=== PATIENT | female | born 1945 | race Caucasian/White ===

== ENCOUNTER 2020-10-13 06:31 | Inpatient (IN) ==
[~2020-10-13 06:31] MED LIST: Ringers Solution, Lactated 1,000 ML IVC SCH
[2020-10-13] MEDS ORDERED: CeFAZolin Syr 2,000MG/20 ML 2,000 MG/20 ML SYRINGE IVPB ONE (06:54)
[2020-10-13] MEDS ORDERED: *HR* FentaNYL (PF) 100 MCG/2 ML VIAL ONE (07:00)
[2020-10-13] MEDS ORDERED: *HR* OxyCODONE/APAP 5/325 TABLET PO PRN (07:00)
[2020-10-13] MEDS ORDERED: Ondansetron 4 MG/2 ML VIAL ONE (07:00)
[2020-10-13] MEDS ORDERED: Dexamethasone 4 MG/ML VIAL ONE (07:00)
[2020-10-13] MEDS ORDERED: *HR* Remifentanil 1 MG VIAL IVP ONE ×2 (07:00→10:03)
[2020-10-13] MEDS ORDERED: *HR* Phenylephrine 10 MG/ML VIAL ONE (07:00)
[2020-10-13] MEDS ORDERED: Ondansetron 4 MG/2 ML VIAL IVP PRN ×2 (07:00→13:50)
[2020-10-13] MEDS ORDERED: *HR* Rocuronium Bromide 50 MG/5 ML VIAL ONE ×2 (07:00→09:01)
[2020-10-13] MEDS ORDERED: *HR* Succinylcholine 200 MG/10 ML VIAL IVP ONE (07:00)
[2020-10-13] MEDS ORDERED: Lidocaine -MPF 2% 2 ML VIAL ONE (07:00)
[2020-10-13] MEDS ORDERED: EPHEDrine 50 MG/ML VIAL ONE (07:01)
[2020-10-13] MEDS ORDERED: *HR* Propofol 200 MG/20 ML VIAL IVP ONE (07:01)
[2020-10-13] MEDS ORDERED: *HR* HYDROmorphone PF 0.5 MG/0.5 ML SYRINGE IVP PRN (07:23)
[2020-10-13] MEDS ORDERED: Ringers Solution, Lactated 1,000 ML IVC SCH (07:30)
[2020-10-13] MEDS ORDERED: Bacitracin 50,000 UNIT, Polymyxin B Sulfate 500,000 UNIT, Sodium Chloride IRRigation 1,... IR ONE (07:45)
[2020-10-13] MEDS ORDERED: Acetaminophen IV 1,000 MG/100 ML BAG IVPB ONE (08:36)
[2020-10-13] MEDS ORDERED: Sugammadex Sodium 200 MG/2 ML VIAL IV ONE (09:10)
[2020-10-13] MEDS ORDERED: *HR* HYDROMORPHONE 2 MG/ML VIAL ONE (11:05)
[2020-10-13] MEDS: *HR* HYDROmorphone PF 0.5 MG/0.5 ML SYRINGE IVP PRN ×4 (11:49→12:11)
[2020-10-13] MEDS ORDERED: Naloxone 0.4 MG/ML INJ IVP PRN (13:50)
[2020-10-13] MEDS ORDERED: Acetaminophen 325 MG TABLET PO PRN (13:50)
[2020-10-13] MEDS ORDERED: *HR* OxyCODONE Immed Rel 5 MG TABLET PO PRN (13:50)
[2020-10-13] MEDS: Ringers Solution, Lactated 1,000 ML IVC SCH (15:32)
[2020-10-13] MEDS: CeFAZolin 2 GM/120 ML BAG IVPB SCH (15:32)
[2020-10-13] MEDS ORDERED: *HR* Promethazine 25 MG/ML VIAL IM ONE (18:06)
[2020-10-13] MEDS ORDERED: Scopolamine Patch 1.5 MG PATCH.TD72 TD ONE (18:06)
[2020-10-13] MEDS: Acetaminophen IV 1,000 MG/100 ML BAG IVPB SCH (19:30)
[2020-10-14] MEDS: CeFAZolin 2 GM/120 ML BAG IVPB SCH (00:23)
[2020-10-14] MEDS: Acetaminophen IV 1,000 MG/100 ML BAG IVPB SCH ×2 (02:29→09:32)
[2020-10-14] MEDS ORDERED: diazePAM 2 MG TABLET PO PRN (09:55)
[2020-10-14] MEDS ORDERED: *HR* OxyCODONE Immed Rel 5 MG TABLET PO PRN (09:59)
[2020-10-14] MEDS: tiZANidine 4 MG TABLET PO PRN ×2 (12:34→20:28)
[2020-10-14] MEDS: Acetaminophen 325 MG TABLET PO SCH ×3 (12:34→23:34)
[2020-10-14] MEDS: Ringers Solution, Lactated 1,000 ML IVC SCH ×3 (14:12→22:08)
[2020-10-14 15:24] LABS: Basophils % 0.2 %; Eosinophils % 0.1 %; Hematocrit 29.2 % (35.3-44.9); Hemoglobin 9.6 g/dL (11.5-15.4); Immature Granulocytes % 0.4 % (0-4); Lymphocytes # 0.9 K/mcL (0.6-4.6); Lymphocytes % 9.9 %; Mean Corpuscular HGB Conc 32.9 g/dL (31.6-35.5); Mean Corpuscular Hemoglobin 30.7 pg (28.0-33.3); Mean Corpuscular Volume 93.3 fL (83.0-100.0); Monocytes # 0.7 K/mcL (0.0-1.3); Monocytes % 7.9 %; Neutrophils # 7.3 K/mcL (1.6-8.9); Platelet Count 154 K/mcL (140-400); Red Blood Count 3.13 M/mcL (3.82-4.97); Red Cell Distribution Width 13.2 % (11.5-14.5); Segmented Neutrophils % 81.5 %
[2020-10-14 15:40] LABS: BUN/Creatinine Ratio 27 (6-26); Blood Urea Nitrogen 15 mg/dL (8-23); Calcium 8.1 mg/dL (8.6-10.3); Carbon Dioxide 28 mEq/L (23-29); Chloride 103 mEq/L (98-107); Glucose 117 mg/dL (70-105); Osmolality,Calculated 280 (280-300); Potassium 3.7 mEq/L (3.5-5.1); Sodium 134 mEq/L (136-145); eGFR For African Americans > 60 (> 60); eGFR For Non-African Americans > 60 (> 60)
[2020-10-15] MEDS: Ringers Solution, Lactated 1,000 ML IVC SCH (04:56)
[2020-10-15] MEDS: Acetaminophen 325 MG TABLET PO SCH ×4 (05:42→23:55)
[2020-10-15 07:41] LABS: Basophils % 0.2 %; Eosinophils % 0.2 %; Hematocrit 30.2 % (35.3-44.9); Immature Granulocytes % 0.5 % (0-4); Lymphocytes % 7.7 %; Mean Corpuscular HGB Conc 33.1 g/dL (31.6-35.5); Mean Corpuscular Hemoglobin 30.9 pg (28.0-33.3); Mean Corpuscular Volume 93.2 fL (83.0-100.0); Mean Platelet Volume 9.9 fL (9.4-12.4); Monocytes % 7.6 %; Platelet Count 163 K/mcL (140-400); Red Blood Count 3.24 M/mcL (3.82-4.97); Red Cell Distribution Width 12.8 % (11.5-14.5); Segmented Neutrophils % 83.8 %; White Blood Count 9.6 K/mcL (4.3-11.1)
[2020-10-15 07:42] LABS: Lymphocytes # 0.7 K/mcL (0.6-4.6); Monocytes # 0.7 K/mcL (0.0-1.3)
[2020-10-15 07:53] LABS: BUN/Creatinine Ratio 24 (6-26); Blood Urea Nitrogen 11 mg/dL (8-23); Calcium 8.2 mg/dL (8.6-10.3); Carbon Dioxide 29 mEq/L (23-29); Chloride 101 mEq/L (98-107); Glucose 106 mg/dL (70-105); Osmolality,Calculated 276 (280-300); Potassium 3.6 mEq/L (3.5-5.1); Sodium 133 mEq/L (136-145); eGFR For African Americans > 60 (> 60); eGFR For Non-African Americans > 60 (> 60)
[2020-10-15] MEDS ORDERED: Acetaminophen IV 1,000 MG/100 ML BAG IVPB ONE (09:52)
[2020-10-15] MEDS: Acetaminophen IV 1,000 MG/100 ML BAG IVPB SCH (10:13)
[2020-10-15] MEDS ORDERED: Ondansetron 4 MG/2 ML VIAL IVP PRN (13:04)
[2020-10-15] MEDS: tiZANidine 4 MG TABLET PO SCH ×3 (13:32→21:55)
[2020-10-16 01:07] LABS: Basophils % 0.2 %; Eosinophils % 0.3 %; Hematocrit 30.6 % (35.3-44.9); Hemoglobin 10.1 g/dL (11.5-15.4); Immature Granulocytes % 0.4 % (0-4); Lymphocytes # 0.7 K/mcL (0.6-4.6); Lymphocytes % 7.1 %; Mean Corpuscular Hemoglobin 30.6 pg (28.0-33.3); Mean Corpuscular Volume 92.7 fL (83.0-100.0); Mean Platelet Volume 10.2 fL (9.4-12.4); Monocytes # 0.6 K/mcL (0.0-1.3); Monocytes % 5.9 %; Neutrophils # 8.4 K/mcL (1.6-8.9); Platelet Count 174 K/mcL (140-400); Red Cell Distribution Width 12.6 % (11.5-14.5); Segmented Neutrophils % 86.1 %; White Blood Count 9.8 K/mcL (4.3-11.1)
[2020-10-16 01:26] LABS: BUN/Creatinine Ratio 31 (6-26); Blood Urea Nitrogen 14 mg/dL (8-23); Calcium 8.1 mg/dL (8.6-10.3); Carbon Dioxide 25 mEq/L (23-29); Chloride 103 mEq/L (98-107); Glucose 110 mg/dL (70-105); Osmolality,Calculated 279 (280-300); Potassium 3.8 mEq/L (3.5-5.1); Sodium 134 mEq/L (136-145); eGFR For African Americans > 60 (> 60); eGFR For Non-African Americans > 60 (> 60)
[2020-10-16] MEDS: 0.9 % Sodium Chloride 1,000 ML IVC SCH ×2 (03:30→11:42)
[2020-10-16] MEDS: Acetaminophen 325 MG TABLET PO SCH ×2 (06:05→11:56)
[2020-10-16] MEDS: tiZANidine 4 MG TABLET PO SCH ×2 (10:00→15:17)
[2020-10-16 10:39] VITALS: BP 118/80
[2020-10-16 13:01] LABS: Influenza A PCR Negative (Negative); Influenza B PCR Negative (Negative); Resp. Syncytial Virus PCR Negative (Negative)
[2020-10-16 13:03] LABS: SARS-CoV-2 by PCR (In House) Negative (Negative)
== END 2020-10-16 15:15 | DRG 455 ==
LOC: SAMDAY 06:31 → 3NENU 13:48
PROVIDERS: ADMIT Orthopaedic Surgery Orthopaedic Surgery of the Spine; ATTEND Orthopaedic Surgery Orthopaedic Surgery of the Spine